=== PATIENT | male | born 1960 | race Asian ===

== ENCOUNTER 2019-03-04 16:56 | Observation (INO) | payer OTHER ==
[~2019-03-04] VITALS: Ht 172.7 cm; Wt 81.6 kg
[2019-03-04 17:35] LABS: BASOPHIL % 0.3 % (0-2); PLATELET COUNT 227 x10^3mcL (130-400); RED CELL DISTRIBUTION WIDTH 12.7 % (11.5-14.5)
[2019-03-04 17:48] LABS: CALCIUM 8.9 mg/dL (8.5-10.1); CREATININE SERUM 1.4 mg/dL (0.7-1.3); POTASSIUM SERUM 3.8 mmol/L (3.5-5.1)
--- NOTE | 2019-03-04 17:52 | NUR ---
PATIENT WAS DRIVING EXPERIENCED CHEST PRESSURE ON FREEWAY
[2019-03-04 17:53] LABS: ALBUMIN 4.4 g/dL (3.4-5.0); TOTAL PROTEIN, SERUM 7.9 g/dL (6.4-8.2)
[2019-03-04 18:35] LABS: microscopic required? NO
[2019-03-04 18:49] LABS: UA SPECIFIC GRAVITY 1.015 (1.005-1.035); urine erythrocyte NEGATIVE (NEGATIVE)
[2019-03-04] MEDS ORDERED: METFORMIN HYDR500 M1 PO (21:29)
[2019-03-04] MEDS ORDERED: FENOFIBRATE MI134 MG PO (21:30)
[2019-03-04] MEDS ORDERED: PRA40 PO (21:30)
[2019-03-04] MEDS ORDERED: NORCO1 TA2 PO (21:31)
--- NOTE | 2019-03-04 21:39 | NUR ---
REPORT GIVEN TO TERRA JIMENEZ
--- NOTE | 2019-03-04 21:53 | NUR ---
PT TRANSPORTED TO [facility] VIA [facility] ON CM BY JUSTUS JIMENEZ AND MARILY ANDERSON. PT IN NAD
[2019-03-04 22:19] VITALS: BP 135/83
--- NOTE | 2019-03-04 22:39 | NUR ---
PATIENT RECEIVED FROM ED VIA [facility] ACCOMPANIED BY NURSE AND CAME ALONG, PATIENT ASSISTED IN BED AND POSITIONED COMFORTABLY, HOOKED TO PROGRAM REVIEW DIRECTOR TELE#[id number] NSR, HEPLOCK NOTED TO LEFT AC INTACT TAPE SECURED. PATIENT ACQUIANTED TO BEDSIDE EQUIPMENTS AND UNIT POLICIES, CALL LIGHT PLACED IN REACH. SAFETY PRECAUTIONS INITIATED. PATIENT CLAIMED THAT THE REASON FOR SEEKING MEDICAL INTERVENTION IS TODAY WHILE DRIVING FROM WORK GOING HOME HE EXPERIENCED HEAVY PRESSURE IN HIS CHEST AND FEELS LIKE SOMEBODY IS SITTING ON HIS CHEST,HARD TO BREATH AND PAIN IS WORST WHEN HE TAKES DEEP BREATH,ALSO DEVELOPED NUMBNESS TO LEFT HAND,DENIED DIAHPORESIS NOR PAIN RADIATION, PAIN AT THIS TIME IS AT 2/10 AND ITS INTERMITTENT PER PATIENT, NO NOTED SOB. WILL ENDORSE CONTINUITY OF CARE TO ASSIGNED NURSE ANNEMARIE HURLEY.
--- NOTE | 2019-03-04 23:21 | NUR ---
CALLED DR Rebecca COSME TO GET ADMISSION ORDER.
--- NOTE | 2019-03-05 00:06 | NUR ---
HANDS OFF REPORT GIVEN TO ASSIGNED NURSE ANNEMARIE HURLEY.
[2019-03-05 05:19] VITALS: BP 118/66
[2019-03-05 06:19] LABS: BASOPHIL % 0.6 % (0-2); PLATELET COUNT 211 x10^3mcL (130-400); RED CELL DISTRIBUTION WIDTH 12.7 % (11.5-14.5)
[2019-03-05 06:58] LABS: ALBUMIN 3.9 g/dL (3.4-5.0); BILIRUBIN TOTAL 0.9 mg/dL (0.20-1.00); CALCIUM 8.5 mg/dL (8.5-10.1); CARBON DIOXIDE 24.8 mmol/L (21-32); CREATININE SERUM 1.7 mg/dL (0.7-1.3); POTASSIUM SERUM 3.9 mmol/L (3.5-5.1); TOTAL PROTEIN, SERUM 7.4 g/dL (6.4-8.2)
--- NOTE | 2019-03-05 07:00 | NUR ---
PATIENT DENIES PAIN AT THIS TIME. WILL GIVE REPORT TO INCOMING RN AND TO ASSUME CARE
--- NOTE | 2019-03-05 07:30 | NUR ---
RECEIVED PATIENT. PATIENT IS AWAKE AND ORIENTED. STABLE, NO SIGNS OF RESPIRATORY DISTRESS NOTED. NO C/O OF CHEST PAIN OR PRESSURE. IV IS PATENT AND INTACT. SAFETY PRECAUTIONS IN PLACE. CALL LIGHT WITHIN REACH. WILL CONTINUE TO MONITOR.
[2019-03-05 09:04] VITALS: BP 138/79
--- NOTE | 2019-03-05 09:37 | NUR ---
PATIENT RECEIVED AWAKE AND ORIENTED TIMES FOUR. PATIENT WITH DIMINISHED BUT CLEAR BREATH SOUNDS AND DENIES SOB BUT HAS MILD PAIN TO THE MID EPIGASTRIC AREA. DENIES ANY NUMBNEES OR PAIN AND DENIES DIZZINESS OR PAIN TO THE NECK, JAW OR THE LEFT ARM. PATIENT WAS ADVISED THE TROPONIN AND WHAT THE TROPONIN INDICATES IS NEGATIVE AND THE PATIENT HAS STRONG PULSES TO THE EXTREMITIES AND SKIN IS WARM AND DRY.
--- NOTE | 2019-03-05 09:54 | NUR ---
PATIENT IS IN BED, WATCHING TV. JUST SHOWERED. NO ACUTE DISTRESS NOTED. TELE MONITOR IN PLACE. FAMILY AT BESIDE. ALL QUESTIONS AND CONCERNS ADDRESSED. CALL LIGHT WITHIN REACH. SAFETY PRECAUTIONS IN PLACE. WILL CONTINUE TO MONITOR.
[2019-03-05 12:07] VITALS: BP 138/79
--- NOTE | 2019-03-05 12:15 | NUR ---
DISCHARGE HOME INSTRUCTIONS PROVIDED TO PATIENT. VERBALIZED UNDERSTANDING. D/C IV TO LAC, CATHTER INTACT. SLIGHT BLEEDING NOTED, SECURED WITH GAUZE AND TAPE. TELE MONITOR IS OFF AND HANDED BACK TO MONITOR STATION. PATIENT IS STABLE. NO C/O CHEST PAIN PRESSURE. NO ACUTE DISTRESS NOTED. ALL QUESTIONS AND CONCERNS ADRESSED. PATIENT HAS ALL PERSONAL BELONGINGS. WALKED PATIENT TO DISCHARGE OFFICE. PATIENT IS ACCOMPANIED BY NURSE AND SPOUSE.
== END 2019-03-05 12:54 | disposition home or self-care (01) | DRG 206 ==
LOC: ED 16:56 → DU 20:31
PROVIDERS: Emergency Medicine; ADMIT Internal Medicine Pulmonary Disease
DX: M94.0 Chondrocostal junction syndrome [Tietze] (principal); I12.9 Hypertensive chronic kidney disease with stage 1 through stage 4 chronic kidney disease, or unspecified chronic kidney disease; N18.3 Chronic kidney disease, stage 3 (moderate); E11.22 Type 2 diabetes mellitus with diabetic chronic kidney disease; E78.5 Hyperlipidemia, unspecified; Z79.84 Long term (current) use of oral hypoglycemic drugs
CPT/HCPCS: 83880; G0378; J1885; Q0092